=== PATIENT | female | born 1965 | race African-American/Black ===

== ENCOUNTER 2017-06-28 05:33 | Observation (INO) | payer OTHER ==
[~2017-06-28] VITALS: Ht 170.2 cm; Wt 64.4 kg
[2017-06-28 07:55] LABS: HEMATOCRIT. 36.1 % (36.0-48.0); HEMOGLOBIN. 11.9 g/dL (12.0-16.0); MEAN CORPUSCULAR HEMOGLOBIN 28.9 pg (28.0-32.0); MEAN CORPUSCULAR VOLUME 87.7 fL (81.0-99.0); MEAN PLATELET VOLUME 7.4 fl (7.4-10.4); PLATELET 228 x1000/uL (130-400); RED BLOOD CELL COUNT 4.12 mill/uL (4.2-5.4); RED CELL DISTRIBUTION WIDTH 13.8 % (11.6-14.6)
[2017-06-28 07:59] LABS: INR 1.1; PARTIAL THROMBOPLASTIN TIME 22.9 sec (23.4-31.0); PROTHROMBIN TIME 11.2 sec (9.4-11.6)
[2017-06-28 08:04] LABS: CARBON DIOXIDE 27 mEq/L (21-32); CHLORIDE 106 mEq/L (98-107); TROPONIN I < 0.02 ng/mL (0.00-0.04)
[2017-06-28 08:52] LABS: GLUCOSE URINE NEGATIVE (NEGATIVE); KETONES URINE NEGATIVE (NEGATIVE); LEUKOCYTE ESTERASE URINE NEGATIVE (NEGATIVE); NITRITE URINE NEGATIVE (NEGATIVE); OCCULT BLOOD URINE NEGATIVE (NEGATIVE); PROTEIN URINE NEGATIVE (NEGATIVE); SPECIFIC GRAVITY URINE 1.019 (1.005-1.030)
[2017-06-28 08:59] LABS: CLARITY URINE CLEAR (CLEAR); COLOR URINE YELLOW (YELLOW)
[2017-06-28 09:53] LABS: PLATELET ESTIMATE NORMAL
[2017-06-28 11:48] VITALS: BP 130/82
[2017-06-28 12:00] VITALS: BP 122/82
[2017-06-28] MEDS ORDERED: ACETAMINOPHEN 325MG TABLET PO PRN (13:00)
[2017-06-28] MEDS ORDERED: ENOXAPARIN 40MG/0.4ML SYR SUBCUT SCH (13:00)
[2017-06-28] MEDS ORDERED: DOCUSATE SODIUM 100MG CAPSULE PO PRN (13:00)
[2017-06-28 14:00] VITALS: BP 130/82
[2017-06-28] MEDS ORDERED: SODIUM CHLORIDE 0.9% INJ 3ML FLUSH IVF SCH (14:00)
[2017-06-28 15:07] VITALS: BP 130/82
[2017-06-28] MEDS ORDERED: CARVEDILOL 12.5MG TABLET PO SCH (21:00)
[2017-06-29] MEDS ORDERED: ASPIRIN 325MG TABLET PO SCH (09:00)
== END 2017-06-28 15:44 | disposition home or self-care (01) ==
LOC: ER 05:33 → ENRESERV 10:37 → EDBEDREQ 11:36 → 3WST 11:36 → EDBEDREQTM 11:36 → INTOOBSV 11:36
PROVIDERS: ADMIT Internal Medicine; ATTEND Internal Medicine
DX: R07.2 Precordial pain (principal)
CPT/HCPCS: 36415; 71010; 80053; 81003; 83880; 84484; 85025; 85610; 85730; 93005; 96372; 99285; G0378; J1650